=== PATIENT | male | born 1960 ===

== ENCOUNTER 2016-11-12 05:41 | Day surgery (SDC) | payer OTHER ==
[2016-11-12 05:50] VITALS: BMI 23.3
[2016-11-12] MEDS ORDERED: Nitroglycerin 2% Ointment Foilpak UD TOP STA (05:56)
[2016-11-12] MEDS ORDERED: Sodium Chloride 0.9% 1,000 ML IV STA (06:01)
--- NOTE | 2016-11-12 06:04 | ED PDOC ---
Arrival/HPI - General Chief Complaint: Chest Pain Time Seen by Provider: 11/12/16 05:43 Historian: Patient - History of Present Illness Narrative History of Present Illness (Text): 11/12/16 05:45 Familia Castillo is a 56 year old male, whose past medical history includes CAD, high cholesterol, and cardiac stents (2007), who presents to the emergency department complaining sharp, constant mid-sternal chest pain and left leg weakness. Patient states that his chest pain worsens with deep breaths and has noticed that his left leg has been weaker than his right lately. Patient states that he cannot take aspirin because his PMD discontinued his medication several years ago and he does not know why. Patient notes that his last stress test was two weeks ago. Patient denies any history of bleeding, abdominal pain, back pain , nausea, vomiting, or any other complaint at this time. Time/Duration: 4-6 hours Symptom Onset: Gradual Symptom Course: Unchanged Severity Level: Mild Activities at Onset: Light Context: Home Past Medical History - Provider Review Nursing Documentation Reviewed: Yes - Infectious Disease Hx of Infectious Diseases: None - Cardiac Hx MD: Yes Hx Pacemaker: No - Neurological Hx Paralysis: No - Hematological/Oncological Hx Blood Transfusions: No Hx Blood Transfusion Reaction: No - Musculoskeletal/Rheumatological Hx Musculoskeletal Disorders: No - Psychiatric Hx Substance Use: No - Surgical History Other/Comment: Cardiac stent - Anesthesia Hx Malignant Hyperthermia: No Family/Social History - Physician Review Nursing Documentation Reviewed: Yes Family/Social History: No Known Family HX Smoking Status: Never Smoked Hx Alcohol Use: Yes (3 BEERS A DAY) Hx Substance Use: No Allergies/Home Meds Allergies/Adverse Reactions: Allergies No Known Allergies Allergy (Verified 07/07/16 10:51) Home Medications: Home Meds Medication Instructions Recorded Confirmed Atorvastatin [Lipitor] 20 mg PO DAILY 11/04/16 11/12/16 Review of Systems - Review of Systems Constitutional: absent: Fevers, Night Sweats Eyes: absent: Vision Changes ENT: absent: Hearing Changes Respiratory: absent: SOB, Cough Cardiovascular: Chest Pain Gastrointestinal: absent: Abdominal Pain Genitourinary Male: absent: Dysuria, Frequency Musculoskeletal: Other (Left leg pain) Skin: absent: Rash Neurological: absent: Headache Endocrine: absent: Diaphoresis Physical Exam Vital Signs Reviewed: Yes Vital Signs Temp Pulse Resp BP Pulse Ox 11/12/16 05:57 98.0 F 73 17 152/95 H 100 Temperature: Afebrile Blood Pressure: Hypertensive Pulse: Regular Respiratory Rate: Normal Appearance: Positive for: Well-Appearing, Non-Toxic, Comfortable Pain Distress: None Mental Status: Positive for: Alert and Oriented X 3 Medical Decision Making ED Course and Treatment: 11/12/16 06:05 Impression: 56 year old male complaining of sharp constant mid-sternal chest pain and left leg weakness for a few hours. Differential Diagnosis included but are not limited to: Plan: -- EKG -- Angio Chest CT -- RLE CT -- LLE CT -- Type and Screen -- Urinalysis -- Labs -- Nitro-Bid and IV fluids -- Reassess and disposition Prior Visits: Notes and results from previous visits were reviewed. 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 Patient was discharged home. Progress Notes: ' 11/12/16 07:07 I discussed case with Dr. 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 I discussed the case with Dr. Najera and my concern for aortic dissection he understands the concern and also concern for either dissection going down to the leg or arterial occlusion of the same leg HE will do angiogram with runoff to determine if there is in fact a dissection. - Lab Interpretations Lab Results: 11/12/16 06:20 Lab Results 11/12/16 06:20: PT 11.0, INR 1.02, APTT 26.6 11/12/16 06:20: WBC 4.5, RBC 4.51, Hgb 14.3, Hct 42.1, MCV 93.3, MCH 31.7, MCHC 34.0, RDW 14.6 H, Plt Count 206, MPV 10.7, Gran % 43.1 L, Lymph % (Auto) 37.4 H , [place] % (Auto) 13.7 H, Eos % (Auto) 5.1 H, Baso % (Auto) 0.7, Gran # 1.95, Lymph # 1.7, [place] # 0.6, Eos # 0.2, Baso # 0.03 I have reviewed the lab results: Yes - Medication Orders Current Medication Orders: Discontinued Medications Sodium Chloride (Sodium Chloride 0.9%) 1,000 mls @ 999 mls/hr IV .Q1H1M STA Stop: 11/12/16 07:01 Last Admin: 11/12/16 06:12 Dose: 999 mls/hr eMAR Start Stop Document 11/12/16 06:12 EKEOO (Rec: 11/12/16 06:12 EKEOO [id number]) Intravenous Solution Start Date 11/12/16 Start Time 06:12 Nitroglycerin (Nitro-Bid 2% Oint) 1 ea TOP STAT STA Stop: 11/12/16 05:57 Last Admin: 11/12/16 06:13 Dose: 1 ea - Scribe Statement The provider has reviewed the documentation as recorded by the Catracho Pino Provider Scribe Attestation: All medical record entries made by the Scribe were at my direction and personally dictated by me. I have reviewed the chart and agree that the record accurately reflects my personal performance of the history, physical exam, medical decision making, and the department course for this patient. I have also personally directed, reviewed, and agree with the discharge instructions and disposition. Disposition/Present on Arrival - Present on Arrival History of DVT/PE: No History of Uncontrolled Diabetes: No Urinary Catheter: No History of Decub. Ulcer: No History Surgical Site Infection Following: None - Disposition Forms: [employer] (Citizen [place])
[2016-11-12 06:27] LABS: BASO # 0.03 K/mm3 (0.0-2.0); BASO % 0.7 % (0.0-3.0); EOS # 0.2 (0.0-0.7); EOS % 5.1 % (1.5-5.0); GRAN # 1.95 (1.4-6.5); GRAN % 43.1 % (50.0-68.0); HEMATOCRIT 42.1 % (42.0-52.0); LYMPH # 1.7 (1.2-3.4); LYMPH % 37.4 % (22.0-35.0); MEAN CELL VOLUME 93.3 fl (80.0-105.0); MEAN CORPUSCULAR HEMOGLOBIN 31.7 pg (25.0-35.0); MEAN PLATELET VOLUME 10.7 fl (7.0-11.0); MONO # 0.6 (0.1-0.6); MONO % 13.7 % (1.0-6.0); RED CELL DISTRIBUTION WIDTH 14.6 % (11.5-14.5); WHITE BLOOD COUNT 4.5 10^3/ul (4.5-11.0)
[2016-11-12 06:40] LABS: INR 1.02 (0.93-1.08); PARTIAL THROMBOPLASTIN TIME 26.6 Seconds (23.7-30.8)
[2016-11-12] MEDS ORDERED: Lidocaine 2% Inj (20ml) ONE (06:47)
[2016-11-12] MEDS ORDERED: Iodixanol 320 MG/ML 100 ML BOTTLE IV ONE ×2 (06:48→08:23)
[2016-11-12] MEDS ORDERED: Iohexol 350mgl/ml 50 ML ONE (06:48)
[2016-11-12] MEDS ORDERED: Iodixanol 320 MG/ML 200 ML BOTTLE IV ONE (06:48)
[2016-11-12] MEDS ORDERED: Nitroglycerin 50mg in D5W 0 MG/0 ML BOTTLE IV ONE (06:48)
[2016-11-12] MEDS ORDERED: Phenylephrine 10 mg/ml Inj ONE (06:48)
[2016-11-12 07:04] LABS: ALB/GLOB RATIO 1.5 (1.1-1.8); ALKALINE PHOSPHATASE 42 U/L (38-126); ALT/SGPT 38 U/L (7-56); AST/SGOT 30 U/L (17-59); BILIRUBIN,TOTAL 0.8 mg/dL (0.2-1.3); BLOOD UREA NITROGEN 11 mg/dL (7-21); CALCIUM 8.8 mg/dL (8.4-10.5); CARBON DIOXIDE 27 mmol/L (21-33); CHLORIDE 110 mmol/L (98-107); GFR AFRICAN-AMERICAN > 60; GLUCOSE,RANDOM 91 mg/dL (70-110); MAGNESIUM 1.8 mg/dL (1.7-2.2); POTASSIUM 3.8 mmol/L (3.6-5.0); SODIUM 144 mmol/L (132-148); TOTAL PROTEIN 5.9 g/dL (5.8-8.3)
[2016-11-12] MEDS ORDERED: Midazolam 2 MG/2 ML VIAL ONE ×2 (07:16→08:01)
[2016-11-12 07:17] LABS: TROPONIN I < 0.01 ng/mL
[2016-11-12] MEDS ORDERED: Sodium Chloride 0.9% 1,000 ML IV SCH (09:15)
--- NOTE | 2016-11-12 12:02 | CARDCATH ---
PROCEDURE DATE: 11/12/2016 HISTORY: The patient is a 56-year-old male with multiple cardiac risk factors including active smoking, hypercholesterolemia, and documented peripheral vascular disease, who presents with angina. The stress test was abnormal. Because of this, the patient presented to the emergency room with progressive angina. The patient was brought up to the research lab assistant for emergency cardiac catheterization. PROCEDURE: Left heart catheterization with coronary arteriography, left ventriculogram followed by percutaneous transluminal coronary angioplasty and stent of an occluded left anterior descending. The right femoral artery was cannulated with a 6-Citizen Of [place] sheath. There were no complications. The findings on catheterization revealed a right dominant circulation. The RCA revealed intimal irregularities without significant stenosis. The left main artery was unremarkable. The LAD was occluded in its midportion as a previously placed stent. There is a diagonal vessel that reveals a 40% stenosis in the proximal portion. The circumflex artery was free of significant disease. The ramus intermedius, which was a lfwen-zg-[id number] vessel, revealed diffuse 80-90% lesions throughout its course. LV function revealed mild hypokinesis with an estimated ejection fraction of 50%. The patient was started on intravenous Angiomax. Guiding catheter was placed in the ostium of the left main artery. Using a flow-through wire, the chronically occluded LAD was crossed. A 2.0 balloon followed by a 2.5 balloon was utilized to predilate the lesion. A 2.75 x 18 mm drug-eluting stent was placed and deployed at 16 amplitudes of pressure. Repeat coronary arteriography reveals an excellent result with no residual stenosis and MICHAEL III flow. Angio-Seal was used to close the femoral artery site. The patient tolerated the procedure well. In summary, the procedure was successful PTCA and stent of an occluded LAD. Emergency cardiac catheterization reveals critical lesion and occluded LAD, borderline critical lesion in the diagonal vessel, and a diffusely diseased cdbbh-sj-qrknzjkh ramus intermedius. LV function revealed mild hypokinesis with an EF of 50%. Given these findings, the patient will need to remain on aspirin indefinitely and Plavix for least a year. I have discussed with him the need to stop smoking. Viktor Najera MD cc:
--- NOTE | 2016-11-12 22:42 | CARD ---
APPROVED REPORT EKG Measurement Heart [id number] MS 158P75 [id number] <Conclusion> Sinus bradycardia Inferior infarct, age undetermined Cannot rule out Anterior infarct, age undetermined Abnormal ECG
--- NOTE | 2016-11-12 22:58 | CARD ---
APPROVED REPORT EKG Measurement Heart [id number] CT 150P72 [id number] <Conclusion> Normal sinus rhythm Inferior infarct, age undetermined Abnormal ECG
[2016-11-13 06:09] VITALS: TEMP 98.3
[2016-11-13 08:01] LABS: BLOOD UREA NITROGEN 11 mg/dL (7-21); CALCIUM 9.1 mg/dL (8.4-10.5); CARBON DIOXIDE 28 mmol/L (21-33); CHLORIDE 105 mmol/L (98-107); GFR AFRICAN-AMERICAN > 60; GLUCOSE,RANDOM 87 mg/dL (70-110); POTASSIUM 4.1 mmol/L (3.6-5.0); SODIUM 140 mmol/L (132-148)
[2016-11-13 11:11] LABS: HEMATOCRIT 39.4 % (42.0-52.0); MEAN CELL VOLUME 93.6 fl (80.0-105.0); MEAN CORPUSCULAR HEMOGLOBIN 31.8 pg (25.0-35.0); MEAN PLATELET VOLUME 10.4 fl (7.0-11.0); RED CELL DISTRIBUTION WIDTH 14.1 % (11.5-14.5); WHITE BLOOD COUNT 5.4 10^3/ul (4.5-11.0)
[2016-11-13 11:46] VITALS: O2SAT 100
[2016-11-13] MEDS ORDERED: Pneumococcal 23-Valent Vaccine IM ONE (12:11)
[2016-11-13 13:37] VITALS: RESP 16
[2016-11-13 14:44] VITALS: BP 132/60; PULSE 55
--- NOTE | 2016-11-13 15:12 | US ---
PROCEDURE: Duplex arterial ultrasound of the right groin. HISTORY: Recent cardiac catheterization. Pain and pulsatile mass in the right groin. Evaluate for pseudoaneurysm or fistula. PHYSICIAN(S): Viktor Joe MD. FINDINGS: The right common femoral artery is patent with a normal triphasic waveform. No sonographic evidence of a pseudoaneurysm or AV fistula is seen. The right superficial femoral artery and profunda femoral artery are patent proximally. The visualized venous segments the right groin are patent and compressible. IMPRESSION: 1. No sonographic evidence for pseudoaneurysm or AV fistula in the right groin.
--- NOTE | 2016-11-13 16:18 | PN ---
SUBJECTIVE: The patient denies any chest pain. Initially, the patient reported right groin bleeding; however, a stat duplex study of the right femoral artery revealed no hematoma or pseudoaneurysm after the preliminary report. PHYSICAL EXAMINATION VITAL SIGNS: Blood pressure 139/74, heart rate 56, temperature 98.3 and respiration 16. HEENT: Normocephalic. CHEST: Clear. HEART: S1 and S2 regular. EXTREMITIES: No edema. No palpable hematoma. No bruit or swell over the right groin. LABORATORY DATA: Hemoglobin and hematocrit 15.4 and 39.4, white count and platelet count are within normal limits. KELVIN-7 is within normal limit. ASSESSMENT: Coronary artery disease with successful percutaneous transluminal coronary angioplasty and stenting to totally occluded left anterior descending with borderline ejection fraction which was estimated at 50%. RECOMMENDATIONS: The patient will be discharged on aspirin, Plavix and Lipitor therapy, to follow with Dr. Viktor Najera in 2 weeks. Berny Martin MD
--- NOTE | 2016-11-13 22:05 | CARD ---
APPROVED REPORT EKG Measurement Heart [id number] PA 154P71 [id number] <Conclusion> Normal sinus rhythm Inferior infarct, age undetermined Anterior infarct, age undetermined Abnormal ECG
== END 2016-11-13 16:43 | disposition home or self-care (01) ==
LOC: ED 05:41 → CATH 07:42 → 2RSO 09:09 → CATH 11-13 16:43
PROVIDERS: ATTEND Internal Medicine Cardiovascular Disease
DX: I25.119 Atherosclerotic heart disease of native coronary artery with unspecified angina pectoris (principal); E78.00 Pure hypercholesterolemia, unspecified; I73.9 Peripheral vascular disease, unspecified; R94.39 Abnormal result of other cardiovascular function study; F17.200 Nicotine dependence, unspecified, uncomplicated; I25.82 Chronic total occlusion of coronary artery; T82.855A Stenosis of coronary artery stent, initial encounter; Y83.2 Surgical operation with anastomosis, bypass or graft as the cause of abnormal reaction of the patient, or of later complication, without mention of misadventure at the time of the procedure
CPT/HCPCS: 36415; 80048; 80053; 82550; 83615; 83735; 83880; 84484; 85025; 85027; 85610; 85730; 86850; 86900; 93005 ×2; 93458; 93926; 99152; 99283; C1725 ×2; C1760; C1769 ×3; C1874; C1887; C2629; C9600; J0583; J1644; J2250; J3010; J7040; Q9967

== ENCOUNTER 2016-11-15 07:44 | Emergency (ER) | payer OTHER ==
[2016-11-15 07:48] VITALS: BMI 21.5
[2016-11-15] MEDS ORDERED: Morphine 4 mg/ml ISec IVP STA (08:03)
--- NOTE | 2016-11-15 08:04 | ED PDOC ---
Arrival/HPI - General Time Seen by Provider: 11/15/16 07:52 Historian: Patient - History of Present Illness Narrative History of Present Illness (Text): 11/15/16 07:59 A 56 year old male whose past medical history includes, CAD, hyperlipidemia, stents, and a catheterization, presents to the emergency department with left shoulder pain since 10PM last night. The patient states that he has been laying in bed for the past few days as instructed after his catheterization procedure. He states that the pain became worse at 4AM this morning. The patient denies denies fevers, chills, headache, dizziness, chest pain, shortness of breath, dyspnea on exertion, cough, abdominal pain, nausea, vomiting, diarrhea, back pain, neck pain, urinary/bowel changes, trauma/injury, numbness, or any other complaint. Time/Duration: Other (Last night) Symptom Onset: Sudden Symptom Course: Unchanged Activities at Onset: Rest, Light Context: Home Past Medical History - Provider Review Nursing Documentation Reviewed: Yes - Infectious Disease Hx of Infectious Diseases: None - Cardiac Hx Cardiac Disorders: (mi) Other/Comment: abnormal stress test 2 wks ago - Neurological Hx Neurological Disorder: (syncopal episode) HX Cerebrovascular Accident: Yes (2007 no residual) - Hematological/Oncological Hx Blood Transfusions: No Hx Blood Transfusion Reaction: No - Integumentary Other/Comment: right groin dressing dry and intact swelling noted - Musculoskeletal/Rheumatological Hx Falls: No - Psychiatric Hx Substance Use: No - Surgical History Hx Coronary Stent: Yes (2007) Other/Comment: Cardiac stent, left heart catherization, angioplasty, stent - Anesthesia Hx Malignant Hyperthermia: No Family/Social History - Physician Review Nursing Documentation Reviewed: Yes Family/Social History: No Known Family HX Smoking Status: cigars Hx Alcohol Use: Yes (2 beers a day at night) Hx Substance Use: No Allergies/Home Meds Allergies/Adverse Reactions: Allergies No Known Allergies Allergy (Verified 11/15/16 08:05) Home Medications: Home Meds Medication Instructions Recorded Confirmed Atorvastatin [Lipitor] 20 mg PO DAILY 11/04/16 11/15/16 Clopidogrel [Plavix] 75 mg PO DAILY 11/13/16 11/15/16 Review of Systems - Physician Review All systems were reviewed & negative as marked: Yes - Review of Systems Constitutional: absent: Fevers, Night Sweats ENT: absent: Sore Throat Respiratory: absent: SOB, Cough Cardiovascular: absent: Chest Pain, POLLARD Gastrointestinal: absent: Abdominal Pain, Stool Changes, Diarrhea, Nausea, Vomiting Genitourinary Male: absent: Urinary Output Changes Musculoskeletal: Other (Left shoulder pain.). absent: Back Pain, Neck Pain Neurological: absent: Headache, Dizziness Physical Exam Vital Signs Reviewed: Yes Vital Signs Temp Pulse Resp BP Pulse Ox 11/15/16 11:12 98.6 F 69 17 124/80 98 11/15/16 10:33 62 17 148/89 100 11/15/16 09:52 67 18 141/84 98 11/15/16 09:03 98.6 F 68 18 132/82 98 11/15/16 08:19 98.6 F 67 18 141/86 98 11/15/16 07:58 98.5 F 76 18 150/89 100 Temperature: Afebrile Blood Pressure: Normal Pulse: Regular Respiratory Rate: Normal Appearance: Positive for: Well-Appearing, Non-Toxic, Comfortable Pain Distress: None Mental Status: Positive for: Alert and Oriented X 3 - Systems Exam Head: Present: Atraumatic, Normocephalic Pupils: Present: PERRL Extroacular Muscles: Present: EOMI Conjunctiva: Present: Normal Mouth: Present: Moist Mucous Membranes Neck: Present: Normal Range of Motion Respiratory/Chest: Present: Clear to Auscultation, Good Air Exchange. No: Respiratory Distress, Accessory Muscle Use Cardiovascular: Present: Regular Rate and Rhythm, Normal S1, S2. No: Murmurs Abdomen: Present: Normal Bowel Sounds. No: Tenderness, Distention, Peritoneal Signs Back: Present: Normal Inspection Upper Extremity: Present: NORMAL PULSES, Tenderness (Tender to palpation of the left shoulder entirely. ), Neurovascularly Intact, Capillary Refill < 2s. No: Normal ROM (Limited ROM due to pain.), Swelling, Erythema, Temperature Abnormalties, Deformity Lower Extremity: Present: Normal Inspection. No: Edema Neurological: Present: GCS=15, CN II-XII Intact, Speech Normal, Motor Func Grossly Intact, Normal Sensory Function Skin: Present: Warm, Dry, Normal Color. No: Rashes Psychiatric: Present: Alert, Oriented x 3, Normal Insight, Normal Concentration Medical Decision Making ED Course and Treatment: 11/15/16 08:05 Impression: A 56 year old male presents to the emergency department with left shoulder pain. Differential Diagnosis included but are not limited to: Musculoskeletal vs. Cardiac Plan: -- EKG -- Chest/ Left Shoulder X-ray -- Labs -- Morphine -- Reassess and disposition Prior Visits: Notes and results from previous visits were reviewed. Patient was last seen in the emergency department on 11/12/2016 with mid-sternal chest pain and left leg weakness. Progress Notes: EKG: Ordered, reviewed, and independently interpreted the EKG. Rate : 92 BPM Rhythm : NSR Interpretation : T-wave inversions in III, aVF, PVCs Comparison : No changes from 11/13/2016. CHEST X-RAY Dictator : Teri Schroeder MD Report Date : 11/15/2016 09:05:08 IMPRESSION: No active pulmonary disease. Apparent 7 mm nodular opacity in the left lower lobe. A dedicated CT scan of the thorax without intravenous contrast is recommended for further characterization. The final report was tagged to the PA folder and ER discrepancy folder. Radiographs of the Left Shoulder Dictator : Teri Schroeder MD Report Date : 11/15/2016 09:24:37 IMPRESSION: No acute displaced fracture or dislocation. 11/15/16 11:24 Labs reviewed. CXR show's nodular opacity. Patient given results and advised to follow up with PMD. Patient able to move arm better. Pain is much improved. Continues to be neurovascularly intact. No swelling. No neck pain. Discussed patients care with Dr. Najera who recently did the cath. He states patient has follow up with him in a week. I discharge patient with flexeril and an arm sling for support. I advised him that he needs to move shoulder that it doesn't get stiff. He will do so and take medications as recommended. - Lab Interpretations Lab Results: 11/15/16 08:00 11/15/16 08:00 Lab Results 11/15/16 08:00: PT 11.2, INR 1.04, APTT 27.9 11/15/16 08:00: Sodium 141, Potassium 4.2, Chloride 102, Carbon Dioxide 29, Anion Gap 14, BUN 13, Creatinine 0.9, Est GFR ( Amer) > 60, Est GFR (Non- Af Amer) > 60, Random Glucose 123 H, Calcium 10.1, Magnesium 2.0, Total Bilirubin 1.4 H, AST 27, ALT 25, Alkaline Phosphatase 58, Lactate Dehydrogenase 422, Total Creatine Kinase 28 L, Troponin I 0.03 D, Total Protein 7.3, Albumin 4.3, Globulin 3.0, Albumin/Globulin Ratio 1.4 11/15/16 08:00: WBC 8.1 D, RBC 4.76, Hgb 15.1, Hct 44.6, MCV 93.7, MCH 31.7, MCHC 33.9, RDW 13.8, Plt Count 190, MPV 10.9, Gran % 73.1 H, Lymph % (Auto) 12.4 L, [place] % (Auto) 13.0 H, Eos % (Auto) 1.4 L, Baso % (Auto) 0.1, Gran # 5.91 , Lymph # 1.0 L, [place] # 1.1 H, Eos # 0.1, Baso # 0.01 I have reviewed the lab results: Yes - RAD Interpretation Radiology Orders: 11/15/16 08:02 CHEST PORTABLE [RAD] Stat 11/15/16 08:16 SHOULDER LEFT [RAD] Stat - EKG Interpretation Interpreted by ED Physician: Yes Type: 12 lead EKG - Medication Orders Current Medication Orders: Discontinued Medications Cyclobenzaprine HCl (Flexeril) 10 mg PO STAT STA Stop: 11/15/16 09:19 Last Admin: 11/15/16 09:27 Dose: 10 mg Morphine Sulfate (Morphine) 4 mg IVP STAT STA Stop: 11/15/16 08:04 Last Admin: 11/15/16 08:13 Dose: 4 mg MAR Pain Assessment Document 11/15/16 08:13 IT (Rec: 11/15/16 08:13 IT [facility] [id number] Pain Reassessment Is this a pain reassessment? No Sleep Is patient sleeping during reassessment? No Presence of Pain Presence of Pain Yes Pain Scale Used Pain Scale Used Numeric Location Left, Right or Bilateral Left Pain Location Body Site Arm Description Description Constant Intensity of Pain at present 9 IVP Administration Document 11/15/16 08:13 IT (Rec: 11/15/16 08:13 IT [facility] [place] [id number] Charges for Administration # of IVP Administrations 1 - Scribe Statement The provider has reviewed the documentation as recorded by the Catracho Connors Provider Catracho Attestation: All medical record entries made by the Catracho were at my direction and personally dictated by me. I have reviewed the chart and agree that the record accurately reflects my personal performance of the history, physical exam, medical decision making, and the department course for this patient. I have also personally directed, reviewed, and agree with the discharge instructions and disposition. Disposition/Present on Arrival - Present on Arrival Any Indicators Present on Arrival: No History of DVT/PE: No History of Uncontrolled Diabetes: No Urinary Catheter: No History Surgical Site Infection Following: None - Disposition Have Diagnosis and Disposition been Completed?: Yes Diagnosis: Left shoulder pain Disposition: HOME/ ROUTINE Disposition Time: 11:29 Patient Plan: Discharge Condition: IMPROVED Discharge Instructions (ExitCare): Shoulder Pain (ED) Additional Instructions: Mr Castillo, thank you for letting us take care of you today. Your provider was Dr. Hernandez. You were treated for Left Shoulder Pain. The emergency medical care you received today was directed at your acute symptoms. If you were prescribed any medication, please fill it and take as directed. It may take several days for your symptoms to resolve. Return to the Emergency Department if your symptoms worsen, do not improve, or if you have any other problems. Please contact your doctor or call one of the physicians/clinics you have been referred to that are listed on the Patient Visit Information form that is included in your discharge packet. Bring any paperwork you were given at discharge with you along with any medications you are taking to your follow up visit. Our treatment cannot replace ongoing medical care by a primary care provider (PCP) outside of the emergency department. Thank you for allowing the [facility] team to be part of your care today. If you had an X-Ray or CT scan: A Radiologist will review the ED reading if any change in treatment is needed we will contact you. If you had a blood, urine, or wound culture: It will take several days for the results, if any change in treatment is needed we will contact you. If you had an STI test: It will take 48 hours for the results. Please call after 1 week if you have not heard back. Prescriptions: Cyclobenzaprine [Cyclobenzaprine HCl] 10 mg PO Q8 #20 tab Referrals: Viktor Najera MD [Staff Provider] - Follow up with primary Forms: [employer] ([place])
[2016-11-15 08:15] LABS: BASO # 0.01 K/mm3 (0.0-2.0); BASO % 0.1 % (0.0-3.0); EOS # 0.1 (0.0-0.7); EOS % 1.4 % (1.5-5.0); GRAN # 5.91 (1.4-6.5); GRAN % 73.1 % (50.0-68.0); HEMATOCRIT 44.6 % (42.0-52.0); LYMPH % 12.4 % (22.0-35.0); MEAN CELL VOLUME 93.7 fl (80.0-105.0); MEAN CORPUSCULAR HEMOGLOBIN 31.7 pg (25.0-35.0); MEAN CORPUSCULAR HGB CONC 33.9 g/dl (31.0-37.0); MEAN PLATELET VOLUME 10.9 fl (7.0-11.0); MONO # 1.1 (0.1-0.6); RED CELL DISTRIBUTION WIDTH 13.8 % (11.5-14.5); WHITE BLOOD COUNT 8.1 10^3/ul (4.5-11.0)
[2016-11-15 08:20] VITALS: TEMP 98.6
[2016-11-15 08:27] LABS: ALB/GLOB RATIO 1.4 (1.1-1.8); ALKALINE PHOSPHATASE 58 U/L (38-126); ALT/SGPT 25 U/L (7-56); AST/SGOT 27 U/L (17-59); BILIRUBIN,TOTAL 1.4 mg/dL (0.2-1.3); BLOOD UREA NITROGEN 13 mg/dL (7-21); CALCIUM 10.1 mg/dL (8.4-10.5); CARBON DIOXIDE 29 mmol/L (21-33); CHLORIDE 102 mmol/L (98-107); GFR AFRICAN-AMERICAN > 60; GLUCOSE,RANDOM 123 mg/dL (70-110); POTASSIUM 4.2 mmol/L (3.6-5.0); SODIUM 141 mmol/L (132-148); TOTAL PROTEIN 7.3 g/dL (5.8-8.3)
[2016-11-15 08:36] LABS: TROPONIN I 0.03 ng/mL
[2016-11-15 08:38] LABS: INR 1.04 (0.93-1.08); PARTIAL THROMBOPLASTIN TIME 27.9 Seconds (23.7-30.8)
--- NOTE | 2016-11-15 09:06 | RAD ---
HISTORY: chest pain COMPARISON: No prior. FINDINGS: LUNGS: The lungs are well inflated. There is an apparent 7 mm nodular opacity in the left lower lobe. There is no focal consolidation. PLEURA: No significant pleural effusion identified, no pneumothorax apparent. CARDIOVASCULAR: Normal. OSSEOUS STRUCTURES: No significant abnormalities. VISUALIZED UPPER ABDOMEN: Normal. OTHER FINDINGS: None. IMPRESSION: No active pulmonary disease. Apparent 7 mm nodular opacity in the left lower lobe. A dedicated CT scan of the thorax without intravenous contrast is recommended for further characterization. The final report was tagged to the PA folder and ER discrepancy folder.
--- NOTE | 2016-11-15 09:26 | RAD ---
PROCEDURE: Radiographs of the Left Shoulder HISTORY: pain r/o fx COMPARISON: No prior. FINDINGS: BONES: There is no acute displaced fracture or bone destruction. Bone alignment and mineralization are normal. JOINTS: There is mild degenerative osteoarthrosis in the acromioclavicular joint. The glenohumeral joint is normal. SOFT TISSUES: Normal. OTHER FINDINGS: None. IMPRESSION: No acute displaced fracture or dislocation.
[2016-11-15 10:34] VITALS: RESP 17
[2016-11-15 11:14] VITALS: BP 124/80; PULSE 69; O2SAT 98
--- NOTE | 2016-11-15 15:02 | CARD ---
APPROVED REPORT EKG Measurement Heart [id number] NM 152P61 [id number] <Conclusion> Sinus rhythm with frequent premature ventricular complexes Possible Inferior infarct, age Probably Old.
== END 2016-11-15 11:16 | disposition home or self-care (01) ==
LOC: ED 07:44
DX: M25.512 Pain in left shoulder (principal); R91.8 Other nonspecific abnormal finding of lung field; I25.10 Atherosclerotic heart disease of native coronary artery without angina pectoris; Z98.61 Coronary angioplasty status; F17.210 Nicotine dependence, cigarettes, uncomplicated
CPT/HCPCS: 71010; 73030; 80053; 82550; 83615; 83735; 84484; 85025; 85610; 85730; 93005; 96374; 99285; J2270